=== PATIENT | female | born 1985 | race Caucasian/White ===

== ENCOUNTER 2017-02-20 22:45 | Emergency (ER) | payer OTHER ==
[~2017-02-20] VITALS: Ht 167.6 cm; Wt 60.4 kg
[~2017-02-20 22:45] MED LIST: INDOCIN25 MG PO; NO HOME MEDS; NORCO 7.5/321 TABLET PO
[2017-02-20 22:49] VITALS: BP 93/65
[2017-02-21] MEDS ORDERED: BACTRIM,SEPT1 TABLET PO (11:18)
== END 2017-02-21 01:14 | disposition left against medical advice (07) ==
LOC: EME 22:45
DX: R22.42 Localized swelling, mass and lump, left lower limb (principal); Z53.21 Procedure and treatment not carried out due to patient leaving prior to being seen by health care provider

== ENCOUNTER 2017-02-21 09:30 | Emergency (ER) | payer OTHER ==
[~2017-02-21] VITALS: Ht 167.6 cm; Wt 60.4 kg
[2017-02-21] MEDS ORDERED: BACTRIM,SEPT1 TABLET PO (11:18)
[2017-02-21 11:45] VITALS: BP 110/65
== END 2017-02-21 11:46 | disposition home or self-care (01) ==
LOC: EME 09:30
PROC: 0U9MXZZ Drainage of Vulva, External Approach (ICD-10-PCS; principal; 2017-02-21)
DX: N76.4 Abscess of vulva (principal); F17.200 Nicotine dependence, unspecified, uncomplicated
CPT/HCPCS: 99281; 99283